=== PATIENT | female | born 1995 | race African-American/Black ===

== ENCOUNTER 2016-09-21 09:48 | Emergency (ER) | payer SELFPAY ==
[~2016-09-21] VITALS: Ht 157.5 cm; Wt 64.5 kg
[~2016-09-21 09:48] MED LIST: SERT50TA12 PO
[2016-09-21 11:05] LABS: BASOPHILS % (AUTO) 0.6 % (0.0-2.0); EOSINOPHILS % (AUTO) 0.6 % (1.0-6.0); HEMATOCRIT 34.6 % (36-46); HEMOGLOBIN 11.6 g/dL (12.0-16.0); LYMPHOCYTES # (AUTO) 1.4 K/uL (1.0-4.8); LYMPHOCYTES % (AUTO) 25.3 % (22.0-44.0); MEAN CORPUSCULAR HEMOGLOBIN 30.4 pg (26.0-34.0); MEAN CORPUSCULAR HGB CONC 33.6 G/dL (31.0-37.0); MEAN CORPUSCULAR VOLUME 90 fL (80-100); MONOCYTES # (AUTO) 0.3 K/uL (0.1-1.0); MONOCYTES % (AUTO) 5.2 % (2.0-9.0); NEUTROPHILS # (AUTO) 3.7 K/uL (1.8-7.7); NEUTROPHILS % (AUTO) 68.3 % (40.0-70.0); PLATELET COUNT (AUTO) 236 K/uL (150-450); RED BLOOD CELL COUNT(AUTO) 3.83 MIL/uL (4.00-5.20); WHITE BLOOD COUNT (AUTO) 5.4 K/uL (4.5-11.0)
[2016-09-21 11:14] LABS: ANION GAP 10 mmol/L (8-16); CALCIUM, TOTAL 9.1 mg/dL (8.8-10.5); CARBON DIOXIDE 25 mmol/L (22-29); CHLORIDE 103 mmol/L (98-107); CREATININE 0.56 mg/dL (0.60-1.30); GLOMERULAR FILTR. RATE CALC > 60 mL/min (>60); POTASSIUM 3.5 mmol/L (3.5-5.1); SODIUM SERUM 138 mmol/L (136-145); UREA NITROGEN, BLOOD 7 mg/dL (7-18)
[2016-09-21 11:39] LABS: ALANINE AMINOTRANSFERASE 11 U/L (12-78); ALBUMIN 3.2 g/dL (3.4-5.0); ASPARTATE AMINOTRANSFERASE 11 U/L (15-37); BILIRUBIN,TOTAL 0.3 mg/dL (0.1-1.0); TOTAL PROTEIN, SERUM 7.6 g/dL (6.4-8.2)
[2016-09-21 12:05] VITALS: BP 112/68
== END 2016-09-21 13:24 | disposition home or self-care (01) ==
LOC: EMS 09:50
DX: O26.892 Other specified pregnancy related conditions, second trimester (principal); R55 Syncope and collapse; Z3A.17 17 weeks gestation of pregnancy
CPT/HCPCS: 76801; 76817; 93005; 99285

== ENCOUNTER 2016-10-25 18:00 | Observation (INO) | payer MEDICAID ==
[2016-10-25 18:10] VITALS: BP 118/70
[2016-10-25] MEDS ORDERED: PREN-134 PO (18:57)
== END 2016-10-25 18:50 | disposition home or self-care (01) ==
LOC: 4S 18:00
PROVIDERS: ADMIT Obstetrics & Gynecology; ATTEND Obstetrics & Gynecology
DX: O36.8120 Decreased fetal movements, second trimester, not applicable or unspecified (principal); Z3A.22 22 weeks gestation of pregnancy
CPT/HCPCS: 59025; G0378

== ENCOUNTER 2016-10-29 18:20 | Observation (INO) | payer MEDICAID ==
[~2016-10-29 18:20] MED LIST changes: +PREN-134 PO; -SERT50TA12 PO
[2016-10-29 19:37] VITALS: BP 119/66
== END 2016-10-29 20:30 | disposition home or self-care (01) ==
LOC: 4S 18:20
PROVIDERS: ADMIT Obstetrics & Gynecology; ATTEND Obstetrics & Gynecology
DX: O26.892 Other specified pregnancy related conditions, second trimester (principal); R10.9 Unspecified abdominal pain; Z3A.22 22 weeks gestation of pregnancy
CPT/HCPCS: 59025; 80307 ×8; G0378

== ENCOUNTER 2016-11-09 13:20 | Observation (INO) | payer MEDICAID ==
[~2016-11-09] VITALS: Ht 157.5 cm; Wt 69.9 kg
[2016-11-09 13:58] VITALS: BP 111/63
[2016-11-09] MEDS ORDERED: INFLUENZA VIRUS VACCINE QVS 2017-18 (3YR+)/PF 60 MCG/0.5 ML SYRINGE IM ONE (21:30)
== END 2016-11-10 03:54 | disposition home or self-care (01) ==
LOC: 4S 13:20
PROVIDERS: ADMIT Obstetrics & Gynecology; ATTEND Obstetrics & Gynecology
DX: O46.92 Antepartum hemorrhage, unspecified, second trimester (principal); Z3A.25 25 weeks gestation of pregnancy
CPT/HCPCS: 59025; 76805; 86900

== ENCOUNTER 2016-11-10 04:02 | Observation (INO) | payer MEDICAID ==
[~2016-11-10] VITALS: Ht 157.5 cm; Wt 71.7 kg
[2016-11-20 12:41] VITALS: BP 114/59
== END 2016-11-20 13:20 | disposition home or self-care (01) ==
LOC: 4S 11-20 12:34
PROVIDERS: ADMIT Obstetrics & Gynecology; ATTEND Obstetrics & Gynecology
DX: O36.8120 Decreased fetal movements, second trimester, not applicable or unspecified (principal); Z3A.26 26 weeks gestation of pregnancy
CPT/HCPCS: 59025; G0378

== ENCOUNTER 2016-11-23 08:09 | Observation (INO) | payer MEDICAID ==
[~2016-11-23] VITALS: Ht 157.5 cm; Wt 69.9 kg
[2016-11-23 08:31] VITALS: BP 120/69
[2016-11-23] MEDS ORDERED: PREN1TAB89 PO (08:31)
== END 2016-11-23 11:40 | disposition home or self-care (01) ==
LOC: 4S 08:09
PROVIDERS: ADMIT Obstetrics & Gynecology; ATTEND Obstetrics & Gynecology
DX: O26.852 Spotting complicating pregnancy, second trimester (principal); Z3A.26 26 weeks gestation of pregnancy
CPT/HCPCS: 59025; 76817; G0378